=== PATIENT | male | born 1970 | race Caucasian/White ===

== ENCOUNTER 2022-10-19 11:32 | Emergency (ER) | payer OTHER ==
[~2022-10-19] VITALS: Ht 177.8 cm; Wt 109.1 kg
[2022-10-19 11:33] VITALS: BP 148/84
[2022-10-19 12:58] LABS: PHENCYCLIDINE URINE NEGATIVE (NEGATIVE)
[2022-10-19 12:59] LABS: AMPHETAMINES LEVEL URINE NEGATIVE (NEGATIVE); BARBITURATES URINE NEGATIVE (NEGATIVE); BENZODIAZEPINES URINE NEGATIVE (NEGATIVE); CANNABINOIDS URINE NEGATIVE (NEGATIVE); COCAINE METABOLITE URINE NEGATIVE (NEGATIVE); METHADONE URINE NEGATIVE (NEGATIVE); OPIATES URINE NEGATIVE (NEGATIVE)
== END 2022-10-19 12:28 | disposition home or self-care (01) ==
LOC: M ED 11:32
DX: S49.91XA Unspecified injury of right shoulder and upper arm, initial encounter (principal); V43.52XA Car driver injured in collision with other type car in traffic accident, initial encounter; Y92.410 Unspecified street and highway as the place of occurrence of the external cause; Y93.89 Activity, other specified; Y99.8 Other external cause status